=== PATIENT | female | born 1955 | race Caucasian/White ===

== ENCOUNTER 2022-12-16 02:28 | Outpatient (CLI) | payer OTHER, SELFPAY ==
[2022-12-16 11:32] LABS: Abs Immature Grans 0.01 10^3/uL (0.0-0.06); Absolute Basophil Count 0.03 10^3/uL (0.0-0.2); Absolute Eosinophil Count 0.13 10^3/uL (0.0-0.7); Absolute Lymphocyte Count 1.52 10^3/uL (1.2-3.4); Absolute Monocyte Count 0.45 10^3/uL (0.1-0.8); Absolute Neutrophil Count 2.09 10^3/uL (1.2-6.7); Basophils % 0.7; Eosinophils % 3.1; HCT 38.6 % (36.0-46.0); HGB 13.2 g/dL (11.2-15.7); Immature Grans % 0.2; Lymphocytes % 35.9; MCH 31.7 pg (27.0-33.0); MCHC 34.2 % (32.0-36.0); MCV 93 fL (80-95); MPV 8.8 fL (8.0-11.0); Monocytes % 10.6; Neutrophils % 49.5; Platelet Count 231 10^3/uL (130-400); RBC 4.17 10^6/uL (3.93-5.22); RDW 12.4 % (11.7-14.6); RDW-SD 42.3 fL; WBC 4.23 10^3/uL (4.4-10.8)
[2022-12-16 12:07] LABS: ALT 38 U/L (14-59); AST 19 U/L (15-37); Albumin 3.5 g/dL (3.4-5.0); Alkaline Phosphatase 69 U/L (46-116); Anion Gap 4.4 mmol/L (3-11); BUN 16 mg/dL (7-18); Bilirubin, Total 0.2 mg/dL (0.2-1.0); CO2 32.6 mmol/L (21.0-32.0); CREATININE 0.7 mg/dL (0.55-1.02); Calcium 9.6 mg/dL (8.5-10.1); Chloride 101 mmol/L (98-107); Estimated GFR 95.32 (mL/min/1.73m2); Glucose 94 mg/dL (74-106); Magnesium 1.9 mg/dL (1.8-2.4); Potassium 4.2 mmol/L (3.5-5.1); Sodium 138 mmol/L (136-145); Total Protein 7.1 g/dL (6.4-8.2)
== END 2022-12-16 02:29 | disposition home or self-care (01) ==
LOC: LBO 02:30
PROVIDERS: PCP Internal Medicine; Visit Provider Internal Medicine Medical Oncology
DX: C34.11 Malignant neoplasm of upper lobe, right bronchus or lung (principal)
CPT/HCPCS: 36415; 80053; 83735; 85025

== ENCOUNTER 2022-12-23 03:55 | Outpatient (CLI) | payer OTHER, SELFPAY ==
[2022-12-23 08:06] LABS: Absolute Basophil Count 0.02 10^3/uL (0.0-0.2); Absolute Eosinophil Count 0.15 10^3/uL (0.0-0.7); Absolute Lymphocyte Count 1.44 10^3/uL (1.2-3.4); Absolute Monocyte Count 0.68 10^3/uL (0.1-0.8); Absolute Neutrophil Count 0.86 10^3/uL (1.2-6.7); Basophils % 0.6; Eosinophils % 4.8; HCT 40.7 % (36.0-46.0); HGB 13.8 g/dL (11.2-15.7); Lymphocytes % 45.7; MCH 31.7 pg (27.0-33.0); MCHC 33.9 % (32.0-36.0); MCV 94 fL (80-95); MPV 8.3 fL (8.0-11.0); Monocytes % 21.6; Neutrophils % 27.3; Platelet Count 383 10^3/uL (130-400); RBC 4.35 10^6/uL (3.93-5.22); RDW 13.2 % (11.7-14.6); RDW-SD 45.1 fL; WBC 3.15 10^3/uL (4.4-10.8)
[2022-12-23 08:19] LABS: ALT 38 U/L (14-59); AST 20 U/L (15-37); Albumin 3.5 g/dL (3.4-5.0); Alkaline Phosphatase 73 U/L (46-116); Anion Gap 6.3 mmol/L (3-11); BUN 12 mg/dL (7-18); Bilirubin, Total 0.2 mg/dL (0.2-1.0); CO2 30.7 mmol/L (21.0-32.0); CREATININE 0.7 mg/dL (0.55-1.02); Calcium 10.1 mg/dL (8.5-10.1); Chloride 104 mmol/L (98-107); Estimated GFR 95.32 (mL/min/1.73m2); Glucose 94 mg/dL (74-106); Magnesium 2.1 mg/dL (1.8-2.4); Potassium 4.3 mmol/L (3.5-5.1); Sodium 141 mmol/L (136-145); Total Protein 7.3 g/dL (6.4-8.2)
[2022-12-23 08:20] LABS: Diff Comment Diff Reviewed; RBC Morphology Normal
== END 2022-12-23 03:56 | disposition home or self-care (01) ==
LOC: LBO 03:55
PROVIDERS: PCP Internal Medicine; Visit Provider Internal Medicine Medical Oncology
DX: C34.11 Malignant neoplasm of upper lobe, right bronchus or lung (principal)
CPT/HCPCS: 36415; 80053; 83735; 85025

== ENCOUNTER 2022-12-30 05:01 | Outpatient (CLI) | payer OTHER, SELFPAY ==
[2022-12-30 07:58] LABS: Abs Immature Grans 0.05 10^3/uL (0.0-0.06); Absolute Basophil Count 0.06 10^3/uL (0.0-0.2); Absolute Eosinophil Count 0.13 10^3/uL (0.0-0.7); Absolute Lymphocyte Count 1.86 10^3/uL (1.2-3.4); Absolute Monocyte Count 0.98 10^3/uL (0.1-0.8); Absolute Neutrophil Count 5.52 10^3/uL (1.2-6.7); Basophils % 0.7; Eosinophils % 1.5; HCT 40.1 % (36.0-46.0); HGB 13.5 g/dL (11.2-15.7); Immature Grans % 0.6; Lymphocytes % 21.6; MCH 31.8 pg (27.0-33.0); MCHC 33.7 % (32.0-36.0); MCV 94 fL (80-95); MPV 8.5 fL (8.0-11.0); Monocytes % 11.4; Neutrophils % 64.2; Platelet Count 395 10^3/uL (130-400); RBC 4.25 10^6/uL (3.93-5.22); RDW 13.8 % (11.7-14.6); RDW-SD 46.2 fL
[2022-12-30 08:11] LABS: ALT 36 U/L (14-59); AST 22 U/L (15-37); Albumin 3.5 g/dL (3.4-5.0); Alkaline Phosphatase 71 U/L (46-116); Anion Gap 4.5 mmol/L (3-11); BUN 24 mg/dL (7-18); Bilirubin, Total 0.2 mg/dL (0.2-1.0); CO2 31.5 mmol/L (21.0-32.0); CREATININE 0.7 mg/dL (0.55-1.02); Calcium 10.1 mg/dL (8.5-10.1); Chloride 104 mmol/L (98-107); Estimated GFR 95.32 (mL/min/1.73m2); Glucose 131 mg/dL (74-106); Magnesium 2.2 mg/dL (1.8-2.4); Potassium 4.5 mmol/L (3.5-5.1); Sodium 140 mmol/L (136-145); Total Protein 7.1 g/dL (6.4-8.2)
== END 2022-12-30 05:02 | disposition home or self-care (01) ==
LOC: LBO 05:01
PROVIDERS: PCP Internal Medicine; Visit Provider Internal Medicine Medical Oncology
DX: C34.11 Malignant neoplasm of upper lobe, right bronchus or lung (principal)
CPT/HCPCS: 36415; 80053; 83735; 85025

== ENCOUNTER 2023-01-20 16:10 | Outpatient (CLI) | payer OTHER, SELFPAY ==
[2023-01-20 08:37] LABS: Absolute Basophil Count 0.03 10^3/uL (0.0-0.2); Absolute Eosinophil Count 0.02 10^3/uL (0.0-0.7); Absolute Lymphocyte Count 0.92 10^3/uL (1.2-3.4); Absolute Monocyte Count 0.58 10^3/uL (0.1-0.8); Basophils % 1.3; Eosinophils % 0.9; HCT 38.1 % (36.0-46.0); Lymphocytes % 39.1; MCH 32.2 pg (27.0-33.0); MCHC 34.1 % (32.0-36.0); MCV 94 fL (80-95); MPV 8.2 fL (8.0-11.0); Monocytes % 24.7; Platelet Count 373 10^3/uL (130-400); RBC 4.04 10^6/uL (3.93-5.22); RDW-SD 51.4 fL; WBC 2.35 10^3/uL (4.4-10.8)
[2023-01-20 08:51] LABS: ALT 32 U/L (14-59); AST 20 U/L (15-37); Albumin 3.5 g/dL (3.4-5.0); Alkaline Phosphatase 62 U/L (46-116); Anion Gap 4.4 mmol/L (3-11); BUN 18 mg/dL (7-18); Bilirubin, Total 0.3 mg/dL (0.2-1.0); CO2 28.6 mmol/L (21.0-32.0); CREATININE 0.6 mg/dL (0.55-1.02); Calcium 9.8 mg/dL (8.5-10.1); Chloride 103 mmol/L (98-107); Estimated GFR 98.93 (mL/min/1.73m2); Glucose 108 mg/dL (74-106); Magnesium 2.1 mg/dL (1.8-2.4); Potassium 4.2 mmol/L (3.5-5.1); Sodium 136 mmol/L (136-145); Total Protein 7.2 g/dL (6.4-8.2)
[2023-01-20 09:12] LABS: Diff Comment Agrees w/ Instrument; RBC Morphology Normal
== END 2023-01-20 16:11 | disposition home or self-care (01) ==
LOC: LBO 16:10
PROVIDERS: PCP Internal Medicine; Visit Provider Internal Medicine Medical Oncology
DX: C34.11 Malignant neoplasm of upper lobe, right bronchus or lung (principal)
CPT/HCPCS: 36415; 80053; 83735; 85025

== ENCOUNTER 2023-01-29 03:59 | Outpatient (CLI) | payer OTHER, SELFPAY ==
[2023-01-29 08:11] LABS: Abs Immature Grans 0.01 10^3/uL (0.0-0.06); Absolute Basophil Count 0.05 10^3/uL (0.0-0.2); Absolute Eosinophil Count 0.03 10^3/uL (0.0-0.7); Absolute Lymphocyte Count 0.67 10^3/uL (1.2-3.4); Absolute Monocyte Count 0.72 10^3/uL (0.1-0.8); Absolute Neutrophil Count 5.38 10^3/uL (1.2-6.7); Basophils % 0.7; Eosinophils % 0.4; HCT 39.7 % (36.0-46.0); HGB 13.5 g/dL (11.2-15.7); Immature Grans % 0.1; Lymphocytes % 9.8; MCH 32.6 pg (27.0-33.0); MCV 96 fL (80-95); MPV 8.3 fL (8.0-11.0); Monocytes % 10.5; Neutrophils % 78.5; Platelet Count 311 10^3/uL (130-400); RBC 4.14 10^6/uL (3.93-5.22); RDW 15.5 % (11.7-14.6); RDW-SD 54.2 fL; WBC 6.86 10^3/uL (4.4-10.8)
[2023-01-29 08:24] LABS: ALT 33 U/L (14-59); AST 22 U/L (15-37); Albumin 3.5 g/dL (3.4-5.0); Alkaline Phosphatase 65 U/L (46-116); Anion Gap 5.6 mmol/L (3-11); BUN 20 mg/dL (7-18); Bilirubin, Total 0.3 mg/dL (0.2-1.0); CO2 30.4 mmol/L (21.0-32.0); CREATININE 0.7 mg/dL (0.55-1.02); Calcium 10.4 mg/dL (8.5-10.1); Chloride 104 mmol/L (98-107); Estimated GFR 95.32 (mL/min/1.73m2); Glucose 101 mg/dL (74-106); Potassium 4.2 mmol/L (3.5-5.1); Sodium 140 mmol/L (136-145); Total Protein 7.3 g/dL (6.4-8.2)
== END 2023-01-29 04:00 | disposition home or self-care (01) ==
PROVIDERS: PCP Internal Medicine; Visit Provider Internal Medicine Medical Oncology
DX: C34.11 Malignant neoplasm of upper lobe, right bronchus or lung (principal)
CPT/HCPCS: 36415; 80053; 83735; 85025

== ENCOUNTER 2023-02-24 12:18 | Outpatient (CLI) | payer OTHER, SELFPAY ==
[2023-02-24 07:21] LABS: Abs Immature Grans 0.01 10^3/uL (0.0-0.06); Absolute Basophil Count 0.03 10^3/uL (0.0-0.2); Absolute Eosinophil Count 0.14 10^3/uL (0.0-0.7); Absolute Lymphocyte Count 0.69 10^3/uL (1.2-3.4); Absolute Monocyte Count 0.86 10^3/uL (0.1-0.8); Basophils % 0.8; Eosinophils % 3.6; HCT 37.5 % (36.0-46.0); HGB 12.8 g/dL (11.2-15.7); Immature Grans % 0.3; Lymphocytes % 17.6; MCH 33.2 pg (27.0-33.0); MCHC 34.1 % (32.0-36.0); MCV 97 fL (80-95); Monocytes % 21.9; Neutrophils % 55.8; Platelet Count 306 10^3/uL (130-400); RBC 3.85 10^6/uL (3.93-5.22); RDW 15.8 % (11.7-14.6); RDW-SD 55.7 fL; WBC 3.93 10^3/uL (4.4-10.8)
[2023-02-24 07:22] LABS: Absolute Neutrophil Count 2.19 10^3/uL (1.2-6.7)
[2023-02-24 07:35] LABS: ALT 34 U/L (14-59); AST 25 U/L (15-37); Albumin 3.6 g/dL (3.4-5.0); Alkaline Phosphatase 73 U/L (46-116); Anion Gap 4.2 mmol/L (3-11); BUN 17 mg/dL (7-18); Bilirubin, Total 0.3 mg/dL (0.2-1.0); CO2 29.8 mmol/L (21.0-32.0); CREATININE 0.7 mg/dL (0.55-1.02); Chloride 103 mmol/L (98-107); Estimated GFR 95.32 (mL/min/1.73m2); Glucose 96 mg/dL (74-106); Magnesium 2.4 mg/dL (1.8-2.4); Potassium 4.6 mmol/L (3.5-5.1); Sodium 137 mmol/L (136-145); Total Protein 7.3 g/dL (6.4-8.2)
== END 2023-02-24 12:19 | disposition home or self-care (01) ==
LOC: LBO 12:19
PROVIDERS: PCP Internal Medicine; Visit Provider Internal Medicine Medical Oncology
DX: C34.11 Malignant neoplasm of upper lobe, right bronchus or lung (principal)
CPT/HCPCS: 36415; 80053; 83735; 85025

== ENCOUNTER → 2023-03-19 00:34 | Outpatient (CLI) | payer OTHER, SELFPAY ==
--- NOTE | 2023-03-19 | DI.CT_ITS ---
Exam(s) CT CHEST W EXAM: CT CHEST W CLINICAL HISTORY: F/U RUL LUNG CA, C34.11,S/P CHEMO AND RAD,ASSESS TREATMENT RESPONSE TECHNIQUE: Imaging Protocol: Axial computed tomography images with coronal and sagittal reformatted images were created and reviewed CONTRAST MATERIAL: Intravenous: Omnipaque 350 Contrast volume:70 ml. COMPARISON: CT CT CHEST LOW DOSE FOLLOW UP from 05/16/2022 FINDINGS: Pulmonary parenchyma: No consolidation. Underlying mild emphysematous changes. Significant interval decrease in size of previously noted anterior right upper lobe nodule, now 4 x 5 millimeters compare d with over 8 millimeters on prior. It is somewhat difficult to measure since is adjacent to vessels . Calcified nodule is again noted at both lung bases. No new nodules. Tracheobronchial tree: No bronchiectasis or mucous plugging. Mediastinum and Harleen: No dominant adenopathy or fluid collection. Pleura: No effusion. No pneumothorax. Heart: The heart is not dilated. Minimal coronary artery calcifications are seen. Aorta: Thoracic aorta non-dilated. Mild atherosclerotic changes. Upper abdomen: Unremarkable. Bones: Degenerative changes in the spine. Soft tissues: Unremarkable. IMPRESSION: Significant interval decrease in size of right upper lobe nodule. No new abnormalities. RADIATION DOSE DELIVERED: Total DLP DATA REPOSITORY: All CT scans at this facility are submitted to the National Radiology Data Registry (NRDR) Dose Index Registry (DIR) with the [employer] (ACR). RADIATION OPTIMIZATION: All CT scans at this facility use at least one of these dose optimization te chniques: automated exposure control; mA and/or kV adjustment per patient size (includes targeted exa ms where dose is matched to clinical indication); or iterative reconstruction.
[2023-03-19 14:30] LABS: Abs Immature Grans 0.01 10^3/uL (0.0-0.06); Absolute Basophil Count 0.04 10^3/uL (0.0-0.2); Absolute Lymphocyte Count 0.98 10^3/uL (1.2-3.4); Absolute Monocyte Count 0.96 10^3/uL (0.1-0.8); Absolute Neutrophil Count 2.15 10^3/uL (1.2-6.7); Basophils % 0.9; Eosinophils % 2.4; HCT 35.7 % (36.0-46.0); HGB 12.1 g/dL (11.2-15.7); Immature Grans % 0.2; Lymphocytes % 23.1; MCH 33.7 pg (27.0-33.0); MCHC 33.9 % (32.0-36.0); MCV 99 fL (80-95); MPV 8.1 fL (8.0-11.0); Monocytes % 22.6; Neutrophils % 50.8; Platelet Count 358 10^3/uL (130-400); RBC 3.59 10^6/uL (3.93-5.22); RDW-SD 55.3 fL; WBC 4.24 10^3/uL (4.4-10.8)
[2023-03-19 14:46] LABS: ALT 33 U/L (14-59); AST 17 U/L (15-37); Albumin 3.8 g/dL (3.4-5.0); Alkaline Phosphatase 72 U/L (46-116); Anion Gap 6.5 mmol/L (3-11); BUN 16 mg/dL (7-18); Bilirubin, Total 0.3 mg/dL (0.2-1.0); CO2 30.5 mmol/L (21.0-32.0); CREATININE 0.7 mg/dL (0.55-1.02); Calcium 10.1 mg/dL (8.5-10.1); Chloride 101 mmol/L (98-107); Estimated GFR 94.73 (mL/min/1.73m2); Glucose 113 mg/dL (74-106); Magnesium 2.1 mg/dL (1.8-2.4); Potassium 4.1 mmol/L (3.5-5.1); Sodium 138 mmol/L (136-145); Total Protein 7.5 g/dL (6.4-8.2)
[2023-03-19] MEDS: Normal Saline - Diluent 50 ML VIAL IJ (14:54)
[2023-03-19] MEDS: Normal Saline Flush 10 ML SYR IVP (14:54)
[2023-03-19] MEDS: Omnipaque 350 MG/ML 100 ML BTL IJ (14:57)
== END ==
PROVIDERS: PCP Internal Medicine; Visit Provider Nurse Practitioner Family
DX: C34.11 Malignant neoplasm of upper lobe, right bronchus or lung (principal); Z08 Encounter for follow-up examination after completed treatment for malignant neoplasm
CPT/HCPCS: 80053; 71260; 83735; 85025; J3490

== ENCOUNTER 2024-04-14 01:13 | Outpatient (CLI) | payer OTHER, SELFPAY ==
--- NOTE | 2024-04-14 | DI.CT_ITS ---
Exam(s) CT CHEST/ABD/PEL W EXAM: CT CHEST/ABD/PEL W CLINICAL HISTORY: H/O LIMITED STAGE SAMLL TREATMENT ENDING 03/03, RESTAGING, RUL CA C34.11. TECHNIQUE: Imaging Protocol: Axial computed tomography images with coronal and sagittal reformatted images were created and reviewed. Computer aided detection (CAD) was utilized. CONTRAST MATERIAL: Intravenous: Omnipaque 350 Contrast volume:100 ml Oral: yes / COMPARISON: CT CT CHEST LOW DOSE FOLLOW UP from 05/16/[address] CHEST W from 03/19/[address] CHEST/ABD/PELVIS W/CONTRAST from 12/17/2023 FINDINGS: CHEST: Tracheobronchial tree: Patent. Pulmonary parenchyma: Area of scarring again noted in anterior right upper lobe. A area of rounded d ensity anteromedially in the right upper lobe abutting the pleura measuring 11 x 10 knee millimeters which appears to have increased in size from prior exam where measured at most 9 millimeters. Increa sed generalized densities noted around the right hilum which may represent post radiation changes. N o consolidation or dominant measurable mass. Mild emphysematous changes. Incidental bibasilar calcif ied granulomas. Pleura: No effusion or pneumothorax. Mediastinum: Within normal limits. Aorta: Thoracic portion non-dilated. Pulmonary arteries: No visible emboli. Heart: Normal size. No pericardial effusion. Bones: Unremarkable for age. No lytic or blastic lesions.No compression fractures. Soft tissues: Unremarkable. ABDOMEN and PELVIS: Liver: Normal density. No measurable mass. Gallbladder and biliary tract: No evidence of stones or wall thickening. No biliary dilatation. Pancreas: Normal density, no abnormal calcifications or inflammatory process. Spleen: Normal. Kidneys: Normal size, contour and axis. No radiodense stones. No obstructive uropathy. No suspicious masses seen. Adrenal glands: No masses seen. Aorta: Abdominal portion non-dilated. Lymph nodes: Within normal limits. Soft tissues: Unremarkable. Bladder: Unremarkable. Bowel: No obstruction or bowel wall thickening. Large quantity of stool seen throughout the colon. Peritoneal cavity: No ascites. No focal collection. No mesenteric inflammatory response. No free ai r. Bones: Degenerative changes in the spine. No lytic or blastic lesions. Reproductive organs: Calcified uterine fibroids. IMPRESSION: Postsurgical changes in the right upper lobe. Rounded area of soft tissue density seen on abutting th e anterior pleura, associated with the area of scarring. This area of nodularity has increased in siz e from the prior exam. Postradiation changes at the right hilum. No evidence of adenopathy. No evidence of metastatic disease or other acute abnormality in the abdomen or pelvis. Large quanti ty of fecal material. RADIATION DOSE DELIVERED: 345.34mGy.cm Total DLP DATA REPOSITORY: All CT scans at this facility are submitted to the National Radiology Data Registry (NRDR) Dose Index Registry (DIR) with the [employer] (ACR). RADIATION OPTIMIZATION: All CT scans at this facility use at least one of these dose optimization te chniques: automated exposure control; mA and/or kV adjustment per patient size (includes targeted exa ms where dose is matched to clinical indication); or iterative reconstruction.
[2024-04-14] MEDS: Barium Sulfate 2% W/V-Berry Smoothie 450 ML BTL PO ×2 (11:46→11:47)
[2024-04-14 12:13] LABS: Abs Immature Grans 0.01 10^3/uL (0.0-0.06); Absolute Basophil Count 0.04 10^3/uL (0.0-0.2); Absolute Eosinophil Count 0.12 10^3/uL (0.0-0.7); Absolute Lymphocyte Count 1.57 10^3/uL (1.2-3.4); Absolute Monocyte Count 0.66 10^3/uL (0.1-0.8); Absolute Neutrophil Count 4.75 10^3/uL (1.2-6.7); Basophils % 0.6 %; Eosinophils % 1.7 %; HCT 42.7 % (36.0-46.0); HGB 14.5 g/dL (11.2-15.7); Immature Grans % 0.1 %; MCH 32.4 pg (27.0-33.0); MCV 95 fL (80-95); MPV 8.7 fL (8.0-11.0); Monocytes % 9.2 %; Neutrophils % 66.4 %; Platelet Count 309 10^3/uL (130-400); RBC 4.48 10^6/uL (3.93-5.22); RDW 13.1 % (11.7-14.6); WBC 7.15 10^3/uL (4.4-10.8)
[2024-04-14 12:27] LABS: PTT Activated 26.5 sec (23.6-32.8); Prothrombin Time 9.8 sec (9.1-11.1)
[2024-04-14 12:29] LABS: ALT 43 U/L (14-59); AST 23 U/L (15-37); Albumin 3.6 g/dL (3.4-5.0); Alkaline Phosphatase 83 U/L (46-116); Anion Gap 6.5 mmol/L (3-11); BUN 13 mg/dL (7-18); Bilirubin, Total 0.45 mg/dL (0.2-1.0); CO2 30.5 mmol/L (21.0-32.0); CREATININE 0.8 mg/dL (0.55-1.02); Calcium 9.5 mg/dL (8.5-10.1); Chloride 107 mmol/L (98-107); Estimated GFR 80.21 (mL/min/1.73m2); Glucose 105 mg/dL (74-106); Potassium 4.3 mmol/L (3.5-5.1); Sodium 144 mmol/L (136-145); Total Protein 7.3 g/dL (6.4-8.2)
[2024-04-14] MEDS: Omnipaque 350 MG/ML 500 ML BTL-Imaging package IJ (14:07)
[2024-04-14] MEDS: Normal Saline - Diluent 50 ML VIAL IJ (14:07)
[2024-04-14] MEDS: Gadoterate meglumine 20 ML VIAL 11 ML IVP (15:17)
--- NOTE | 2024-04-14 15:45 | DI.MRI_ITS ---
Exam(s) MR BRAIN WO/W EXAM: MR BRAIN WO/W CLINICAL HISTORY: RUL LUNG CA, C34.11, H/O LIMITED STAGE SMALL. TECHNIQUE: Multiplanar multisequence MRI of the brain was performed. CONTRAST MATERIAL: IV Contrast: 11 ML of Dotarem contrast administered. COMPARISON: MR MR BRAIN W/WO CONTRAST from 12/17/2023 FINDINGS: VENTRICLES AND EXTRA AXIAL SPACES: Normal in size and morphology for the patient's age. Ventricular diverticulum again noted in the medial left frontal temporal region. HEMORRHAGE: None. CEREBRAL PARENCHYMA: No focus of restricted diffusion to suggest acute infarct. No space-occupying le shakeel identified. Mild atrophy. Mild scattered foci of high signal consistent with microvascular c hanges. BRAINSTEM/CEREBELLUM: Stable small area of high signal in the delaon which is nonenhancing also likely represents microvascular changes. CALVARIUM: Stable area enhancement within the high right parietal skull measuring 12 millimeters AP x 6 millimeters cephalo caudad by 16 millimeters. Mild adjacent meningeal thickening. ENHANCEMENT: No suspicious enhancement identified. VISUALIZED PARANASAL SINUSES/MASTOIDS: Clear. Orbits: Unremarkable. Pituitary: Not enlarged. Vasculature: Normal flow voids. IMPRESSION: Stable enhancing lesion in the left superior parietal skull. No abnormal enhancing brain lesions. DATA REPOSITORY:
== END 2024-04-14 01:33 ==
LOC: DI 01:13
PROVIDERS: PCP Internal Medicine; Visit Provider Internal Medicine Medical Oncology
DX: C34.11 Malignant neoplasm of upper lobe, right bronchus or lung (principal); Z98.890 Other specified postprocedural states
CPT/HCPCS: 70553; 74177; 80053; 71260; 85025; 85610; 85730

== ENCOUNTER 2024-08-09 00:55 | Outpatient (CLI) | payer MEDICARE, OTHER, SELFPAY ==
--- NOTE | 2024-08-09 | DI.CT_ITS ---
Exam(s) CT CHEST W EXAM: CT CHEST W CLINICAL HISTORY: Primary malignant neoplasm of RUL, C34.11, limited stage SCLC, surveillance TECHNIQUE: Imaging Protocol: Axial computed tomography images with coronal and sagittal reformatted images were created and reviewed. Computer aided detection (CAD) was utilized. CONTRAST MATERIAL: Intravenous: Omnipaque 350Contrast volume:70 mL. COMPARISON: CT CT CHEST/ABD/PEL W from 04/14/2024 FINDINGS: Tracheobronchial tree: Patent where visualized. Stable bronchiectasis in the right upper lobe. Pulmonary parenchyma: There are calcified granuloma present. Mild centrilobular emphysematous change s are present. The rounded opacity in the anterior medial aspect of the right upper lobe measures 1. 2 cm compared to 1.1 cm on the prior examination. The right suprahilar soft tissue/scarring is again seen. There is resultant bronchiectasis in the right upper lobe. No acute infiltrates are seen. Mediastinum and Harleen: No dominant adenopathy or fluid collection. The esophagus is unremarkable. Thyroid gland: Unremarkable. Pleura: No effusion or pneumothorax. Heart: The heart is not dilated. Coronary artery calcification is present. No pericardial effusion. Aorta: Thoracic aorta non-dilated. Atherosclerotic calcification is present. No evidence of dissecti on. Pulmonary arteries: No pulmonary emboli are identified. Upper abdomen: Unremarkable. Lymph nodes: Within normal limits. Bones: Within normal limits for the patient's age. Soft tissues: Unremarkable. IMPRESSION: 1. Stable appearance of the chest compared to 04/14/2024. 2. No acute pulmonary process. RADIATION DOSE DELIVERED: 95.62mGy.cm Total DLP DATA REPOSITORY: All CT scans at this facility are submitted to the National Radiology Data Registry (NRDR) Dose Index Registry (DIR) with the [employer] (ACR). RADIATION OPTIMIZATION: All CT scans at this facility use at least one of these dose optimization te chniques: automated exposure control; mA and/or kV adjustment per patient size (includes targeted exa ms where dose is matched to clinical indication); or iterative reconstruction.
[2024-08-09 10:51] LABS: Abs Immature Grans 0.03 10^3/uL (0.0-0.06); Absolute Basophil Count 0.04 10^3/uL (0.0-0.2); Absolute Eosinophil Count 0.24 10^3/uL (0.0-0.7); Absolute Lymphocyte Count 1.72 10^3/uL (1.2-3.4); Absolute Monocyte Count 0.68 10^3/uL (0.1-0.8); Absolute Neutrophil Count 5.32 10^3/uL (1.2-6.7); Basophils % 0.5 %; HGB 14.8 g/dL (11.2-15.7); Immature Grans % 0.4 %; Lymphocytes % 21.4 %; MCH 31.4 pg (27.0-33.0); MCHC 32.9 % (32.0-36.0); MCV 96 fL (80-95); MPV 8.8 fL (8.0-11.0); Monocytes % 8.5 %; Neutrophils % 66.2 %; Platelet Count 352 10^3/uL (130-400); RBC 4.71 10^6/uL (3.93-5.22); RDW-SD 46.2 fL; WBC 8.03 10^3/uL (4.4-10.8)
[2024-08-09] MEDS: Gadoterate meglumine 20 ML VIAL 10 ML IVP (10:53)
[2024-08-09 11:11] LABS: ALT 43 U/L (14-59); AST 26 U/L (15-37); Albumin 3.7 g/dL (3.4-5.0); Alkaline Phosphatase 111 U/L (46-116); Anion Gap 7.1 mmol/L (3-11); BUN 18 mg/dL (7-18); Bilirubin, Total 0.4 mg/dL (0.2-1.0); CO2 29.9 mmol/L (21.0-32.0); CREATININE 0.7 mg/dL (0.55-1.02); Calcium 9.6 mg/dL (8.5-10.1); Chloride 106 mmol/L (98-107); Estimated GFR 94.15 (mL/min/1.73m2); Glucose 106 mg/dL (74-106); Sodium 143 mmol/L (136-145); Total Protein 7.7 g/dL (6.4-8.2)
--- NOTE | 2024-08-09 11:20 | DI.MRI_ITS ---
Exam(s) MR BRAIN WO/W EXAM: MR BRAIN WO/W CLINICAL HISTORY: Primary malignant neoplasm, RUL, C34.11, limited stage SCLC TECHNIQUE: Multiplanar multisequence MRI of the brain was performed. CONTRAST MATERIAL: IV Contrast: 10 mL of Dotarem contrast administered. COMPARISON: MR MR BRAIN W/WO CONTRAST from 12/17/2023 MR MR BRAIN WO/W from 04/14/2024 FINDINGS: VENTRICLES AND EXTRA AXIAL SPACES: Normal in size and morphology for the patient's age. There is agai n seen an enhancing extra-axial mass along the left convexity measuring 1.2 cm transverse by 0.5 cm c raniocaudad by 0.8 cm AP. Using similar measuring techniques, there has been no significant change c ompared to the prior examination. HEMORRHAGE: None. CEREBRAL PARENCHYMA: No focus of restricted diffusion to suggest acute infarct. There are areas of hy perintense signal seen in the white matter on the T2 and FLAIR images most consistent with chronic mi crovascular ischemic change. MIDLINE SHIFT: None. BRAINSTEM/CEREBELLUM: Normal. CALVARIUM: Normal. ENHANCEMENT: No intraparenchymal enhancing lesions are seen. VISUALIZED PARANASAL SINUSES/MASTOIDS: Clear. BILL MOORE'S SLOUGH OF [place]: Normal flow void. PITUITARY GLAND: Unremarkable. OTHER FINDINGS: IMPRESSION: 1. Stable extra-axial enhancing mass along the left parietal convexity. This may represent a meningi amanuel. 2. No intraparenchymal enhancing brain lesions. 3. No evidence of an acute infarct. DATA REPOSITORY:
[2024-08-09] MEDS: Normal Saline - Diluent 50 ML VIAL IJ (11:44)
[2024-08-09] MEDS: Omnipaque 350 MG/ML 100 ML BTL 70 ML IJ (11:45)
== END 2024-08-09 01:15 ==
PROVIDERS: PCP Family Medicine; Visit Provider Nurse Practitioner Family
DX: C34.11 Malignant neoplasm of upper lobe, right bronchus or lung (principal)
CPT/HCPCS: 70553; 80053; 71260; 85025; J3490

== ENCOUNTER 2024-12-13 01:11 | Outpatient (CLI) | payer MEDICARE, SELFPAY ==
--- NOTE | 2024-12-13 | DI.CT_ITS ---
Exam(s) CT CHEST W EXAM: CT CHEST W CLINICAL HISTORY: RT UPPER LOBE LUNG CANCER HX SCLC SURVEILLANCE TECHNIQUE: Imaging Protocol: Axial computed tomography images with coronal and sagittal reformatted images were created and reviewed. Computer aided detection (CAD) was utilized. CONTRAST MATERIAL: Intravenous: Omnipaque 350Contrast volume:75 mL. COMPARISON: CT CT CHEST/ABD/PEL W from 04/14/[address] CHEST W from 08/09/2024 FINDINGS: Tracheobronchial tree: Patent where visualized. No evidence of bronchiectasis. Pulmonary parenchyma: There is a new reticular nodular infiltrate in the left upper lobe. Emphysematous changes are present in the lungs. There is a stable nodular density in the anterior aspect of the right upper lobe. There is a new area of nodularity anteriorly in the right middle lobe. It measures 1 cm (series 9, image 83). Calcified granuloma are present. Mediastinum and Harleen: There is stable scarring seen in the right hilum. The esophagus is unremarkable. Thyroid gland: Unremarkable. Pleura: No effusion or pneumothorax. Heart: The heart is not dilated. Mild coronary artery calcification is present. No pericardial effusion. Aorta: Thoracic aorta non-dilated. Atherosclerotic calcification is present. Pulmonary arteries: No pulmonary emboli are identified. Upper abdomen: Unremarkable. Lymph nodes: Within normal limits. Bones: Within normal limits for the patient's age. Soft tissues: Unremarkable. IMPRESSION: 1. New reticular nodular infiltrate in the left upper lobe. No infectious or inflammatory process should be considered. Please correlate clinically. Post radiation infiltrate should also be considered. 2. Stable nodular density in the anterior aspect of the right upper lobe. Stable scarring seen in the right suprahilar region. 3. New area of nodularity anteriorly in the right middle lobe. This may represent atelectasis, metastasis or pneumonia. RADIATION DOSE DELIVERED: 80.44mGy.cm Total DLP DATA REPOSITORY: All CT scans at this facility are submitted to the National Radiology Data Registry (NRDR) Dose Index Registry (DIR) with the [employer] (ACR). RADIATION OPTIMIZATION: All CT scans at this facility use at least one of these dose optimization techniques: automated exposure control; mA and/or kV adjustment per patient size (includes targeted exams where dose is matched to clinical indication); or iterative reconstruction.
[2024-12-13 12:22] LABS: Abs Immature Grans 0.01 10^3/uL (0.0-0.06); HCT 39.4 % (36.0-46.0); HGB 13.3 g/dL (11.2-15.7); Immature Grans % 0.2 %; MCH 31.4 pg (27.0-33.0); MCHC 33.8 % (32.0-36.0); MCV 93 fL (80-95); MPV 8.6 fL (8.0-11.0); Platelet Count 340 10^3/uL (130-400); RBC 4.23 10^6/uL (3.93-5.22); RDW 13.6 % (11.7-14.6); RDW-SD 46.5 fL; WBC 5.97 10^3/uL (4.4-10.8)
[2024-12-13 12:50] LABS: ALT 37 U/L (14-59); AST 28 U/L (15-37); Albumin 3.5 g/dL (3.4-5.0); Alkaline Phosphatase 93 U/L (46-116); Anion Gap 4.0 mmol/L (3-11); BUN 10 mg/dL (7-18); Bilirubin, Total 0.4 mg/dL (0.2-1.0); CO2 33.0 mmol/L (21.0-32.0); Calcium 10.1 mg/dL (8.5-10.1); Chloride 103 mmol/L (98-107); Estimated GFR 80.21 (mL/min/1.73m2); Glucose 102 mg/dL (74-106); Magnesium 2.0 mg/dL (1.8-2.4); Potassium 3.7 mmol/L (3.5-5.1); Sodium 140 mmol/L (136-145); Total Protein 7.3 g/dL (6.4-8.2)
[2024-12-13] MEDS: Normal Saline - Diluent 50 ML VIAL IJ (13:08)
[2024-12-13] MEDS: Omnipaque 350 MG/ML 100 ML BTL 70 ML IJ (13:16)
== END 2024-12-13 01:31 ==
PROVIDERS: PCP Family Medicine; Visit Provider Nurse Practitioner Family
DX: C34.11 Malignant neoplasm of upper lobe, right bronchus or lung (principal)
CPT/HCPCS: 80053; 71260; 83735; 85025; J3490

== ENCOUNTER → 2025-03-22 00:27 | Outpatient (CLI) | payer MEDICARE, SELFPAY ==
[2025-03-22 12:08] LABS: Abs Immature Grans 0.01 10^3/uL (0.0-0.06); HCT 42.5 % (36.0-46.0); HGB 14.3 g/dL (11.2-15.7); Immature Grans % 0.2 %; MCH 30.9 pg (27.0-33.0); MCHC 33.6 % (32.0-36.0); MCV 92 fL (80-95); MPV 8.6 fL (8.0-11.0); Platelet Count 326 10^3/uL (130-400); RBC 4.63 10^6/uL (3.93-5.22); RDW 13.5 % (11.7-14.6); RDW-SD 45.5 fL; WBC 5.77 10^3/uL (4.4-10.8)
[2025-03-22 12:40] LABS: Magnesium 2.0 mg/dL (1.6-2.6)
[2025-03-22 12:42] LABS: ALT 33 U/L (10-49); AST 30 U/L (<34); Albumin 4.5 g/dL (3.4-5.0); Alkaline Phosphatase 86 U/L (46-116); Anion Gap 6.7 mmol/L (3-11); BUN 18 mg/dL (9-23); Bilirubin, Total 0.40 mg/dL (0.2-1.2); CO2 30.3 mmol/L (20.0-31.0); Calcium 9.8 mg/dL (8.3-10.6); Chloride 105 mmol/L (98-107); Glucose 90 mg/dL (74-106); Potassium 4.0 mmol/L (3.5-5.1); Sodium 142 mmol/L (136-145); Total Protein 7.3 g/dL (5.7-8.2)
[2025-03-22] MEDS: Normal Saline Flush 10 ML SYR IVP (13:12)
[2025-03-22] MEDS: Normal Saline - Diluent 50 ML VIAL IJ (13:12)
[2025-03-22] MEDS: Omnipaque 350 MG/ML 100 ML BTL IJ (13:12)
--- NOTE | 2025-03-22 13:15 | DI.CT_ITS ---
Exam(s) CT CHEST W EXAM: CT CHEST W CLINICAL HISTORY: C34.11 Restaging, HX limites tage small cell lung CA RUL, treated chemo/RT TECHNIQUE: Imaging Protocol: Axial computed tomography images with coronal and sagittal reformatted images were created and reviewed. Computer aided detection (CAD) was utilized. CONTRAST MATERIAL: Intravenous: Omnipaque 350 Contrast volume:70 ml. COMPARISON: CT CT CHEST W from 08/09/[address] CHEST W from 12/13/2024 FINDINGS: Pulmonary parenchyma: There has been slight interval increase in size of previously noted mass in the anterior right upper lobe, measuring 17 x 19 by 13 millimeters compared with 13 by 19 by 12 millimeters. There is stable increased densities noted in the right perihilar region. Stable linear scarring in the medial right upper lobe. Previously noted focal area of nodularity in the anterior right middle lobe is no longer seen. Small of patchy infiltrates noted in the left upper lobe are no longer present. There is mild underlying emphysema. Scattered granulomas are noted. No consolidation. Tracheobronchial tree: Stable mild right upper lobe bronchiectasis. No mucous plugging. Mediastinum and Harleen: No dominant adenopathy or fluid collection. Pleura: No effusion. No pneumothorax. Heart: The heart is not dilated. Mild coronary artery calcifications are seen. Aorta: Thoracic aorta non-dilated. Mild atherosclerotic changes. Pulmonary arteries: No gross evidence of emboli. Upper abdomen: No acute findings. Bones: Degenerative changes in the spine. Soft tissues: Unremarkable. IMPRESSION: Mild interval increase in size of anterior right upper lobe mass. No new pulmonary nodules or infiltrates. RADIATION DOSE DELIVERED: Total DLP DATA REPOSITORY: All CT scans at this facility are submitted to the National Radiology Data Registry (NRDR) Dose Index Registry (DIR) with the [employer] (ACR). RADIATION OPTIMIZATION: All CT scans at this facility use at least one of these dose optimization techniques: automated exposure control; mA and/or kV adjustment per patient size (includes targeted exams where dose is matched to clinical indication); or iterative reconstruction.
== END ==
LOC: DI 00:27
PROVIDERS: PCP Family Medicine; Visit Provider Internal Medicine Medical Oncology
DX: C34.11 Malignant neoplasm of upper lobe, right bronchus or lung (principal)
CPT/HCPCS: 80053; 71260; 83735; 85025; J3490